=== PATIENT | male | born 1955 | race Two or more races ===

== ENCOUNTER 2017-06-01 19:23 | Emergency (ER) | payer MEDICAID ==
[~2017-06-01] VITALS: Ht 172.7 cm; Wt 106.5 kg
[~2017-06-01 19:23] MED LIST: BUDE10.22 INH; CARI350T14 PO; HYDR-882 PO; HYDR25TA6 PO; LISI5TAB7 PO; LOVA10TA PO
[2017-06-01] MEDS ORDERED: SODIUM CHLORIDE 0.9% 1,000 ML IV ONE (19:43)
[2017-06-01] MEDS ORDERED: MORPHINE SULFATE 4 MG/ML, 1ML IVPush PRN (20:00)
[2017-06-01] MEDS ORDERED: SODIUM CHLORIDE 0.9% 1,000ML IVBOLUS ONE (20:00)
[2017-06-01] MEDS ORDERED: ONDANSETRON 2MG/ML, 2ML IVPush ONE (20:00)
[2017-06-01 20:20] LABS: WHITE BLOOD COUNT 9.7 x10^3/uL (3.4-10)
[2017-06-01 20:27] VITALS: BP 168/90
[2017-06-01 20:29] LABS: BLOOD UREA NITROGEN 17 mg/dL (7-18)
[2017-06-01] MEDS ORDERED: LIDOCAINE 1%, 20ML INFIL ONE (20:30)
[2017-06-01] MEDS ORDERED: LIDOCAINE 1%, 20ML ONE (20:39)
== END 2017-06-01 21:24 | disposition home or self-care (01) ==
LOC: ED 21:17
DX: S89.91XA Unspecified injury of right lower leg, initial encounter (principal); L03.115 Cellulitis of right lower limb; M79.605 Pain in left leg; W19.XXXA Unspecified fall, initial encounter; Y93.89 Activity, other specified; Y92.89 Other specified places as the place of occurrence of the external cause; Y99.8 Other external cause status
CPT/HCPCS: 10060; 36415; 80048; 82040; 83605; 85025; 87040

== ENCOUNTER 2017-06-04 16:29 | Emergency (ER) | payer MEDICAID ==
[~2017-06-04] VITALS: Ht 172.7 cm; Wt 107.0 kg
[2017-06-04 16:33] VITALS: BP 156/87
== END 2017-06-04 17:57 | disposition home or self-care (01) ==
LOC: ED 17:47
DX: L03.115 Cellulitis of right lower limb (principal); I10 Essential (primary) hypertension; E78.5 Hyperlipidemia, unspecified; J45.909 Unspecified asthma, uncomplicated
CPT/HCPCS: 99283

== ENCOUNTER 2019-09-27 12:43 | Emergency (ER) | payer MEDICAID ==
[~2019-09-27] VITALS: Ht 170.2 cm; Wt 115.0 kg
[~2019-09-27 12:43] MED LIST changes: +HYDR-3653 PO; -HYDR-882 PO
[2019-09-27 13:13] VITALS: BP 184/95
--- NOTE | 2019-09-27 13:26 | NUR ---
PT HERE WITH C/O NECK PAIN/TIGHTNESS APPROX. 2 WEEKS. PT DENIES INJURY OR TRAUMA BUT STATES "POPPING NOISE WHEN I MOVE MY NECK."
[2019-09-27] MEDS ORDERED: OXYcodone/APAP 5/325MG TABLET ONE (13:29)
[2019-09-27] MEDS ORDERED: KETOROLAC 30 MG/1 ML ONE (13:29)
[2019-09-27] MEDS ORDERED: DIAZEPAM 5 MG TABLET ONE (13:29)
[2019-09-27] MEDS ORDERED: OXYcodone/APAP 5/325MG TABLET PO ONE (13:30)
[2019-09-27] MEDS ORDERED: DIAZEPAM 5 MG TABLET PO ONE (13:30)
[2019-09-27] MEDS ORDERED: KETOROLAC 30 MG/1 ML IM ONE (13:30)
--- NOTE | 2019-09-27 13:34 | NUR ---
PT MEDICATED PER ORDERS.
[2019-09-27] MEDS ORDERED: ALBUTEROL/IPRATROPIUM 2.5MG/0.5MG, 3 ML ONE ×2 (13:42→15:58)
--- NOTE | 2019-09-27 13:49 | NUR ---
RT AT BEDSIDE.
[2019-09-27] MEDS ORDERED: ALBUTEROL/IPRATROPIUM 2.5MG/0.5MG, 3 ML NPPB ONE ×2 (14:00→16:00)
--- NOTE | 2019-09-27 14:39 | NUR ---
PT TO CT.
--- NOTE | 2019-09-27 16:14 | NUR ---
Patient/Caregiver given discharge instructions and they have confirmed that they understand the instructions. Patient ambulatory with steady gait.
== END 2019-09-27 16:16 | disposition home or self-care (01) ==
LOC: ED 16:10
DX: S16.1XXA Strain of muscle, fascia and tendon at neck level, initial encounter (principal); J45.41 Moderate persistent asthma with (acute) exacerbation; J00 Acute nasopharyngitis [common cold]; I10 Essential (primary) hypertension; E78.5 Hyperlipidemia, unspecified; X58.XXXA Exposure to other specified factors, initial encounter; Y93.89 Activity, other specified; Y92.89 Other specified places as the place of occurrence of the external cause; Y99.8 Other external cause status
CPT/HCPCS: 71046; 72125; 94640; 96372; 99284; J1885; J7620

== ENCOUNTER 2019-10-09 14:57 | Inpatient (IN) | payer MEDICAID ==
[~2019-10-09] VITALS: Ht 172.7 cm; Wt 110.9 kg
[2019-10-09] MEDS ORDERED: ALBUTEROL/IPRATROPIUM 2.5MG/0.5MG, 3 ML ONE (15:25)
[2019-10-09] MEDS ORDERED: ALBUTEROL/IPRATROPIUM 2.5MG/0.5MG, 3 ML NPPB SCH (15:30)
[2019-10-09] MEDS ORDERED: SODIUM CHLORIDE FLUSH 10ML SYR IVF ONE (15:30)
[2019-10-09] MEDS ORDERED: methylPREDNISolone SOD SUCC 125 MG/2 ML IV ONE (15:30)
[2019-10-09] MEDS ORDERED: methylPREDNISolone SOD SUCC 125 MG/2 ML ONE (15:34)
--- NOTE | 2019-10-09 15:35 | NUR ---
PT PRESENTS TO ED WITH SOB, TACHYPNEA, TACHYCARDIA. PT REPORTS COUGH X4 WEEKS, TAYLOR OFF AND ON X7 WEEKS. PT GIVEN BREATHING TX, CHANGED FROM NRB TO SIMPLE MASK, IV STARTED, LABS DRAWN AND SENT. IV MONUMENT MASON PER EMAR. PT TAKEN TO IMAGING. AWAITING RETURN.
[2019-10-09 15:46] LABS: BASOPHILS # (AUTO) 0.17 x10^3/uL (0-0.1); BASOPHILS % (AUTO) 1 % (0-1); EOSINOPHILS # (AUTO) 0.78 x10^3/uL (0-0.4); EOSINOPHILS % (AUTO) 5 % (1-7); LYMPHOCYTES # (AUTO) 2.39 x10^3/uL (1-3.4); LYMPHOCYTES % (AUTO) 16 % (22-44); MD NO; MEAN CORPUSCULAR HEMOGLOBIN 24.8 pg (27.5-34.5); MEAN CORPUSCULAR HGB CONC 32.4 g/dL (33.2-36.2); MEAN CORPUSCULAR VOLUME 76.6 fL (81-97); MEAN PLATELET VOLUME 8.5 fL (7.4-10.4); MONOCYTES # (AUTO) 1.15 x10^3/uL (0.2-0.8); MONOCYTES % (AUTO) 8 % (2-9); NEUTROPHILS # (AUTO) 10.27 x10^3/uL (1.8-6.8); NEUTROPHILS % (AUTO) 70 % (42-75); PLATELET COUNT 375 x10^3/uL (130-400); RED CELL DISTRIBUTION WIDTH 16.9 % (9.4-14.8)
[2019-10-09 15:54] LABS: ALANINE AMINOTRANSFERASE 54 U/L (12-78); ALBUMIN 3.2 g/dL (3.4-5.0); ANION GAP 7 mmol/L (5-15); CALCIUM 8.4 mg/dL (8.5-10.1); CHLORIDE 106 mmol/L (98-107); CREATININE 1.32 mg/dL (0.7-1.3)
[2019-10-09 15:58] LABS: D-DIMER 1.55 ug/mlFEU (0.00-0.52); PROTHROMBIN TIME 10.6 Seconds (9.6-11.5)
[2019-10-09 15:59] LABS: ALKALINE PHOSPHATASE 140 U/L (45-117); BILIRUBIN,TOTAL 0.5 mg/dL (0.2-1.0); TOTAL PROTEIN 7.7 g/dL (6.4-8.2); TROPONIN I < 0.015 ng/mL (0.000-0.045)
--- NOTE | 2019-10-09 16:26 | NUR ---
PT RETURNED FROM IMAGING. RESPIRATIONS IMPROVED, STILL SLIGHTLY LABORED. PT REPORTS SOME RELIEF WITH RESPIRATIONS. PT C/O NECK/TAYLOR PAIN STILL. REQ FOR PAIN MEDS. AWAITING IMAGING AND LAB REPORTS.
[2019-10-09] MEDS ORDERED: ONDANSETRON 2MG/ML, 2ML ONE (16:33)
[2019-10-09] MEDS ORDERED: MORPHINE SULFATE 4 MG/ML, 1ML ONE ×2 (16:33→18:26)
[2019-10-09] MEDS: MORPHINE SULFATE 4 MG/ML, 1ML IVPush PRN ×2 (16:35→18:29)
--- NOTE | 2019-10-09 16:38 | NUR ---
PT MEDICATED FOR PAIN PER EMAR, TAKEN TO CT AT THIS TIME.
[2019-10-09] MEDS ORDERED: CEFTRIAXONE PMX 1GM/50ML 50 ML ONE (16:58)
[2019-10-09] MEDS ORDERED: ONDANSETRON 2MG/ML, 2ML IVPush ONE (17:00)
[2019-10-09] MEDS ORDERED: AZITHROMYCIN 500 MG in SODIUM CHLORIDE 0.9% 250 ML IVPB ONE (17:00)
[2019-10-09] MEDS ORDERED: CEFTRIAXONE PMX 1GM/50ML 50 ML IVPB ONE (17:00)
[2019-10-09] MEDS ORDERED: OMNIPAQUE 350 MG/ML, 100ML BOTTLE ONE (17:07)
[2019-10-09] MEDS ORDERED: ALBU2.5V INH (17:08)
--- NOTE | 2019-10-09 17:08 | NUR ---
ERMD IN TO DISCUSS ADMISSION WITH PT. IV ABX STARTED. PT LAYING BACK IN BED FOR NECK COMFORT. SOME RELIEF WITH MORPHINE DOSAGE. SIDE RAILS UP, CALL LIGHT IN REACH. MONITORING IN PLACE.
--- NOTE | 2019-10-09 17:14 | NUR ---
dr lewis spoke with [facility]
[2019-10-09] MEDS ORDERED: SODIUM CHLORIDE FLUSH 10ML SYR IVF PRN (17:30)
[2019-10-09 17:45] LABS: RAPID INFLUENZA A Negative (Negative); RAPID INFLUENZA B Negative (Negative)
--- NOTE | 2019-10-09 17:48 | NUR ---
FIRST CALL FOR REPORT
[2019-10-09] MEDS ORDERED: SUMATRIPTAN 25 MG TABLET PO PRN (18:00)
[2019-10-09] MEDS ORDERED: ALBUTEROL/IPRATROPIUM 2.5MG/0.5MG, 3 ML NPPB PRN (18:00)
[2019-10-09] MEDS ORDERED: ACETAMINOPHEN 325 MG TABLET PO PRN (18:00)
[2019-10-09] MEDS ORDERED: LABETALOL 5MG/ML, 20ML IVPush PRN (18:00)
[2019-10-09] MEDS: methylPREDNISolone SOD SUCC 125 MG/2 ML IVPush SCH (18:00)
[2019-10-09] MEDS: HEPARIN 5,000 UNITS/ML, 1ML SQ SCH (18:00)
[2019-10-09] MEDS ORDERED: morphine SULFATE 10 MG/ML, 1ML IVPush PRN (18:00)
--- NOTE | 2019-10-09 18:13 | NUR ---
report to Roma ivey
--- NOTE | 2019-10-09 18:22 | NUR ---
CALL TO [facility] FOR CLARIFICATION OF ORDERS. TO CALL BACK.
--- NOTE | 2019-10-09 18:35 | NUR ---
[facility] WANTS TO HANG REMAINING ABX DUE TO PROCALCITONIN LEVEL. PT TRANSPORTED WITH IVF INFUSING.
[2019-10-09 19:18] VITALS: BP 145/91
[2019-10-09] MEDS ORDERED: FLU VAC QS 19-20(4YR UP)CEL/PF 0.5 ML IM-VACC ONE (20:30)
[2019-10-09] MEDS: LOVASTATIN 10 MG TABLET PO SCH (22:48)
[2019-10-09] MEDS: ALBUTEROL/IPRATROPIUM 2.5MG/0.5MG, 3 ML NPPB SCH ×2 (23:00→23:10)
[2019-10-09] MEDS: BUDESONIDE 0.5 MG/2 ML INHA INH SCH (23:10)
[2019-10-10] MEDS: methylPREDNISolone SOD SUCC 125 MG/2 ML IVPush SCH ×4 (00:38→20:03)
[2019-10-10 01:14] VITALS: BP 146/71
[2019-10-10] MEDS: ALBUTEROL/IPRATROPIUM 2.5MG/0.5MG, 3 ML NPPB SCH ×7 (03:00→22:41)
[2019-10-10 05:23] LABS: BASOPHILS # (AUTO) 0.15 x10^3/uL (0-0.1); BASOPHILS % (AUTO) 1 % (0-1); EOSINOPHILS # (AUTO) 0.07 x10^3/uL (0-0.4); EOSINOPHILS % (AUTO) 1 % (1-7); LYMPHOCYTES # (AUTO) 1.08 x10^3/uL (1-3.4); LYMPHOCYTES % (AUTO) 8 % (22-44); MD NO; MEAN CORPUSCULAR HEMOGLOBIN 25.2 pg (27.5-34.5); MEAN CORPUSCULAR HGB CONC 33.1 g/dL (33.2-36.2); MEAN PLATELET VOLUME 9.2 fL (7.4-10.4); MONOCYTES # (AUTO) 0.04 x10^3/uL (0.2-0.8); MONOCYTES % (AUTO) 0 % (2-9); NEUTROPHILS # (AUTO) 12.15 x10^3/uL (1.8-6.8); NEUTROPHILS % (AUTO) 90 % (42-75); PLATELET COUNT 341 x10^3/uL (130-400); RED BLOOD COUNT 5.96 x10^6/uL (4.38-5.82); RED CELL DISTRIBUTION WIDTH 16.6 % (9.4-14.8)
[2019-10-10 05:33] LABS: CALCIUM 8.5 mg/dL (8.5-10.1); CHLORIDE 105 mmol/L (98-107)
[2019-10-10 05:36] LABS: ANION GAP 8 mmol/L (5-15); CREATININE 1.35 mg/dL (0.7-1.3)
[2019-10-10] MEDS: HEPARIN 5,000 UNITS/ML, 1ML SQ SCH ×3 (05:58→20:03)
[2019-10-10] MEDS ORDERED: ALBUTEROL SULFATE 2.5 MG/3 ML NPPB PRN (06:00)
[2019-10-10 07:56] VITALS: BP 127/77
[2019-10-10] MEDS: LISINOPRIL 5 MG TABLET PO SCH (08:29)
[2019-10-10] MEDS ORDERED: Budesonide/Formoterol Fumarate (Symbicort 80-4.5 Mcg Inhaler) INH SCH (09:00)
[2019-10-10] MEDS: BUDESONIDE 0.5 MG/2 ML INHA INH SCH ×2 (09:11→19:29)
[2019-10-10 12:16] VITALS: BP 128/62
[2019-10-10] MEDS: CARISOPRODOL 350 MG TABLET PO PRN ×2 (13:48→20:02)
[2019-10-10] MEDS: CEFTRIAXONE PMX 1GM/50ML 50 ML IV SCH (13:48)
[2019-10-10] MEDS: AZITHROMYCIN 250 MG TABLET PO SCH (13:48)
[2019-10-10] MEDS: LOVASTATIN 10 MG TABLET PO SCH (20:02)
[2019-10-10 20:34] VITALS: BP 144/70
[2019-10-11 00:37] VITALS: BP 129/75
[2019-10-11] MEDS: methylPREDNISolone SOD SUCC 125 MG/2 ML IVPush SCH ×3 (01:54→08:18)
[2019-10-11] MEDS: CARISOPRODOL 350 MG TABLET PO PRN ×3 (02:01→21:12)
[2019-10-11] MEDS: ALBUTEROL/IPRATROPIUM 2.5MG/0.5MG, 3 ML NPPB SCH ×4 (02:14→19:57)
[2019-10-11] MEDS: HEPARIN 5,000 UNITS/ML, 1ML SQ SCH ×3 (05:37→20:55)
[2019-10-11 06:03] LABS: MEAN CORPUSCULAR HEMOGLOBIN 24.8 pg (27.5-34.5); MEAN CORPUSCULAR HGB CONC 32.2 g/dL (33.2-36.2); MEAN CORPUSCULAR VOLUME 76.9 fL (81-97); MEAN PLATELET VOLUME 9.2 fL (7.4-10.4); PLATELET COUNT 405 x10^3/uL (130-400); RED BLOOD COUNT 5.86 x10^6/uL (4.38-5.82); RED CELL DISTRIBUTION WIDTH 16.3 % (9.4-14.8)
[2019-10-11 06:08] LABS: CALCIUM 8.6 mg/dL (8.5-10.1); CHLORIDE 105 mmol/L (98-107)
[2019-10-11 06:14] LABS: ALANINE AMINOTRANSFERASE 49 U/L (12-78); ALBUMIN 2.8 g/dL (3.4-5.0); ALKALINE PHOSPHATASE 135 U/L (45-117); ANION GAP 10 mmol/L (5-15); BILIRUBIN,TOTAL 0.5 mg/dL (0.2-1.0); CREATININE 1.33 mg/dL (0.7-1.3); TOTAL PROTEIN 7.3 g/dL (6.4-8.2)
[2019-10-11 06:27] LABS: MD YES
[2019-10-11 06:28] LABS: BAND#(MANUAL) 0.28 x10^3/uL; BANDS%(MANUAL) 1 % (0-7); LYMPHS% (MANUAL) 4 % (22-44); MONOS#(MANUAL) 1.66 x10^3/uL (0.3-2.7); MONOS% (MANUAL) 6 % (2-9); SEG#(MANUAL) 24.56 x10^3/uL (1.8-6.8); SEGS% (MANUAL) 89 % (42-75)
[2019-10-11 06:29] LABS: <PLATELET ESTIMATE> INCREASED; <PLT MORPHOLOGY> NORMAL PLT MORPH; ANISOCYTOSIS 1+
[2019-10-11] MEDS ORDERED: DEXTROSE 4 GM TAB.CHEW PO PRN (06:30)
[2019-10-11] MEDS ORDERED: DEXTROSE 50%, 50ML SYRINGE IVPush PRN (06:30)
[2019-10-11] MEDS ORDERED: GLUCAGON 1 MG IM PRN (06:30)
[2019-10-11 06:59] VITALS: BP 127/69
[2019-10-11] MEDS: BUDESONIDE 0.5 MG/2 ML INHA INH SCH ×2 (07:00→19:57)
[2019-10-11] MEDS: AZITHROMYCIN 250 MG TABLET PO SCH (08:18)
[2019-10-11] MEDS: HYDROCHLOROTHIAZIDE 25 MG TABLET PO SCH (08:18)
[2019-10-11] MEDS: LISINOPRIL 5 MG TABLET PO SCH (08:18)
[2019-10-11] MEDS: HYDROcodone/APAP 5/325 TABLET PO PRN ×2 (08:29→21:12)
[2019-10-11] MEDS: SODIUM CHLORIDE FLUSH 10ML SYR IVF SCH ×2 (09:00→20:56)
[2019-10-11] MEDS: metFORMIN 500 MG TABLET PO SCH ×2 (09:48→17:30)
[2019-10-11] MEDS: INSULIN LISPRO 100 UNITS/ML, PEN SQ-INSULIN SCH ×4 (09:49→22:10)
[2019-10-11 12:50] VITALS: BP 136/78
[2019-10-11] MEDS: CEFTRIAXONE PMX 1GM/50ML 50 ML IV SCH (13:47)
[2019-10-11 18:29] VITALS: BP 154/88
[2019-10-11] MEDS: LOVASTATIN 10 MG TABLET PO SCH (20:55)
[2019-10-11] MEDS ORDERED: methylPREDNISolone SOD SUCC 125 MG/2 ML IVPush SCH (21:00)
[2019-10-12 00:03] VITALS: BP 149/92
[2019-10-12] MEDS: ALBUTEROL/IPRATROPIUM 2.5MG/0.5MG, 3 ML NPPB SCH ×2 (03:18→06:49)
[2019-10-12 04:58] LABS: MEAN CORPUSCULAR HGB CONC 32.7 g/dL (33.2-36.2); MEAN CORPUSCULAR VOLUME 76.4 fL (81-97); MEAN PLATELET VOLUME 8.6 fL (7.4-10.4); PLATELET COUNT 401 x10^3/uL (130-400); RED BLOOD COUNT 5.93 x10^6/uL (4.38-5.82); RED CELL DISTRIBUTION WIDTH 16.9 % (9.4-14.8)
[2019-10-12 05:00] LABS: CHLORIDE 105 mmol/L (98-107)
[2019-10-12 05:08] LABS: ALANINE AMINOTRANSFERASE 59 U/L (12-78); ALBUMIN 2.9 g/dL (3.4-5.0); ALKALINE PHOSPHATASE 149 U/L (45-117); ANION GAP 9 mmol/L (5-15); BILIRUBIN,TOTAL 0.5 mg/dL (0.2-1.0); CALCIUM 8.7 mg/dL (8.5-10.1); CREATININE 1.33 mg/dL (0.7-1.3); TOTAL PROTEIN 7.4 g/dL (6.4-8.2)
[2019-10-12] MEDS: HEPARIN 5,000 UNITS/ML, 1ML SQ SCH (05:43)
[2019-10-12 05:56] LABS: BASOPHILS # (AUTO) 0.02 x10^3/uL (0-0.1); BASOPHILS % (AUTO) 0 % (0-1); EOSINOPHILS # (AUTO) 0.14 x10^3/uL (0-0.4); EOSINOPHILS % (AUTO) 1 % (1-7); LYMPHOCYTES # (AUTO) 0.95 x10^3/uL (1-3.4); LYMPHOCYTES % (AUTO) 4 % (22-44); MD SCAN; MONOCYTES # (AUTO) 0.52 x10^3/uL (0.2-0.8); MONOCYTES % (AUTO) 2 % (2-9); NEUTROPHILS # (AUTO) 21.98 x10^3/uL (1.8-6.8); NEUTROPHILS % (AUTO) 93 % (42-75)
[2019-10-12] MEDS: BUDESONIDE 0.5 MG/2 ML INHA INH SCH (06:49)
[2019-10-12] MEDS ORDERED: ACETAMINOPHEN 500 MG TABLET PO ONE (07:30)
[2019-10-12] MEDS: HYDROcodone/APAP 5/325 TABLET PO PRN (07:35)
[2019-10-12] MEDS: CARISOPRODOL 350 MG TABLET PO PRN (07:35)
[2019-10-12] MEDS ORDERED: predniSONE 50MG TABLET PO SCH (08:00)
[2019-10-12] MEDS: INSULIN LISPRO 100 UNITS/ML, PEN SQ-INSULIN SCH ×2 (08:03→11:00)
[2019-10-12] MEDS: LISINOPRIL 5 MG TABLET PO SCH (08:04)
[2019-10-12] MEDS: AZITHROMYCIN 250 MG TABLET PO SCH (08:04)
[2019-10-12] MEDS: metFORMIN 500 MG TABLET PO SCH (08:04)
[2019-10-12] MEDS: HYDROCHLOROTHIAZIDE 25 MG TABLET PO SCH (08:04)
[2019-10-12 08:17] VITALS: BP 152/89
[2019-10-12] MEDS: SODIUM CHLORIDE FLUSH 10ML SYR IVF SCH (09:00)
[2019-10-12] MEDS ORDERED: CEFD300C37 PO (10:59)
[2019-10-12] MEDS ORDERED: AZIT250T89 PO (10:59)
[2019-10-12] MEDS ORDERED: PRED50TA PO (10:59)
[2019-10-12] MEDS ORDERED: METF500T17 PO (11:32)
== END 2019-10-12 12:01 | disposition home or self-care (01) | DRG 133 ==
LOC: ED 17:22 → EDIP 17:35 → 3N 18:42 → DCLOUNGE 10-12 11:43
PROVIDERS: ADMIT Family Medicine; ATTEND Family Medicine
DX: J96.01 Acute respiratory failure with hypoxia (principal); J18.9 Pneumonia, unspecified organism; E11.22 Type 2 diabetes mellitus with diabetic chronic kidney disease; J45.51 Severe persistent asthma with (acute) exacerbation; E11.65 Type 2 diabetes mellitus with hyperglycemia; E44.1 Mild protein-calorie malnutrition; N18.3 Chronic kidney disease, stage 3 (moderate); E66.9 Obesity, unspecified; E78.5 Hyperlipidemia, unspecified; F17.210 Nicotine dependence, cigarettes, uncomplicated; G43.909 Migraine, unspecified, not intractable, without status migrainosus; G89.29 Other chronic pain; I12.9 Hypertensive chronic kidney disease with stage 1 through stage 4 chronic kidney disease, or unspecified chronic kidney disease; M10.9 Gout, unspecified; M19.90 Unspecified osteoarthritis, unspecified site; M47.812 Spondylosis without myelopathy or radiculopathy, cervical region; M50.30 Other cervical disc degeneration, unspecified cervical region; S16.1XXA Strain of muscle, fascia and tendon at neck level, initial encounter; J20.9 Acute bronchitis, unspecified; T38.0X5A Adverse effect of glucocorticoids and synthetic analogues, initial encounter; X58.XXXA Exposure to other specified factors, initial encounter; Z79.51 Long term (current) use of inhaled steroids; Z79.84 Long term (current) use of oral hypoglycemic drugs; Z79.899 Other long term (current) drug therapy; Z68.37 Body mass index [BMI] 37.0-37.9, adult; Y93.89 Activity, other specified; Y92.89 Other specified places as the place of occurrence of the external cause; Y99.8 Other external cause status
CPT/HCPCS: 36415; 71045; 71275; 72050; 80048; 80053; 82962; 83036; 83605; 83880; 84145; 84484; 85025; 85379; 85610; 85730; 87040; 87400; 90674; 93005; 94640; 96365; 96375; G0378; J0456; J0696; J1644; J2405; J7620; J7626; Q9967; J1815; J2270; J2930; J7050; J7512